=== PATIENT | male | born 1960 | race Caucasian/White ===

== ENCOUNTER 2019-05-26 06:45 | Day surgery (SDC) | payer BC ==
[~2019-05-26 06:45] MED LIST: CEFAZOLIN 1 GM/D5W RTU 1 GM/50 ML RTUPB IV PRN; DIAZEPAM 5 MG TABLET PO PRN; OXYCODONE-ACETAMINOPHEN 5-325 MG TABLET PO PRN
[2019-05-26] MEDS ORDERED: DIAZEPAM 5 MG TABLET ONE (08:00)
[2019-05-26] MEDS ORDERED: OXYCODONE-ACETAMINOPHEN 5-325 MG TABLET ONE (08:00)
[2019-05-26] MEDS ORDERED: CEFAZOLIN 1 GM/D5W RTU 1 GM/50 ML RTUPB IV ONE (08:02)
[2019-05-26] MEDS ORDERED: MIDAZOLAM 2 MG/2 ML INJ ONE (08:08)
[2019-05-26] MEDS ORDERED: LIDOCAINE 0.5% INJ-PF (5 MG/ML) 50 ML SDV ONE (08:08)
[2019-05-26] MEDS ORDERED: BACITRACIN INJ 50,000 UNIT VIAL ONE (08:09)
[2019-05-26] MEDS ORDERED: FENTANYL CITRATE INJ/PF 100 MCG/2 ML AMPUL ONE (08:09)
[2019-05-26 08:11] LABS: HEMATOCRIT 32.5 % (37.9-51.0); HEMOGLOBIN 10.6 g/dL (13.5-17.0); MEAN CORPUSCULAR HEMOGLOBIN 24.4 pg (27.0-33.4); MEAN CORPUSCULAR HGB CONC 32.7 g/dL (32.0-36.0); MEAN CORPUSCULAR VOLUME 75 fl (80-97); PLATELET COUNT 246 10^3/uL (150-450); RED BLOOD COUNT 4.35 10^6/uL (4.35-5.55); RED CELL DISTRIBUTION WIDTH 18.8 % (11.5-14.0)
[2019-05-26 08:29] LABS: ANION GAP 10 (5-19); BLOOD UREA NITROGEN 10 mg/dL (7-20); CALCIUM 9.5 mg/dL (8.4-10.2); CARBON DIOXIDE 25 mmol/L (22-30); CHLORIDE 105 mmol/L (98-107); GLUCOSE 108 mg/dL (75-110); POTASSIUM 3.7 mmol/L (3.6-5.0)
--- NOTE | 2019-05-26 09:50 | RADIOLOGY REPORT (SQ) ---
EXAM DESCRIPTION: CHEST SINGLE VIEW COMPLETED DATE/TIME: 05/26/2019 7:50 am REASON FOR STUDY: PREOP COMPARISON: None. EXAM PARAMETERS: NUMBER OF VIEWS: One view. TECHNIQUE: Single frontal radiographic view of the chest acquired. RADIATION DOSE: NA LIMITATIONS: None. FINDINGS: LUNGS AND PLEURA: Minimal scarring in the lung bases. No opacities, masses or pneumothora x. No pleural effusion. MEDIASTINUM AND HILAR STRUCTURES: No masses. Contour normal. HEART AND VASCULAR STRUCTURES: Heart normal in size. Normal vasculature. BONES: No acute findings. HARDWARE: None in the chest. OTHER: No other significant finding. IMPRESSION: NO ACUTE RADIOGRAPHIC FINDING IN THE CHEST. TECHNICAL DOCUMENTATION: JOB ID: [id number] [employer]- All Rights Reserved Reading location - IP/workstation name: [email or web address]
--- NOTE | 2019-05-26 10:03 | Discharge Summary ---
Discharge Summary (SDC) - Discharge Final Diagnosis: Rectosigmoid cancer Date of Surgery: 05/26/19 Discharge Date: 05/26/19 Condition: Good Treatment or Instructions: Discharge home [after recovery per ASU criteria]. Diet , as tolerated, when fully awake advance as tolerated. Activities within moderation encouraged. Follow up in my office by appointment in about [1 week]. Call for appointment. Leave wounds [covered], [keep clean and dry, until office visit in 1 week]. Hold of on school/work [until evaluation in office]. Meds per med rec. May shower [in 48 hrs], [try to keep operated area as dry as possible]. Prescriptions: Oxycodone HCl/Acetaminophen [Percocet 5-325 mg Tablet] 1 tab PO ASDIR PRN #15 tab PRN Reason: Referrals: YENI BARON MD [Primary Care Provider] - Discharge Diet: As Tolerated Respiratory Treatments at Home: Deep Breathing/Coughing
[2019-05-26 11:06] VITALS: BP 134/88
--- NOTE | 2019-05-26 11:16 | RADIOLOGY REPORT (SQ) ---
EXAM DESCRIPTION: CHEST SINGLE VIEW COMPLETED DATE/TIME: 05/26/2019 11:06 am REASON FOR STUDY: POST OP PORT-A-CATH INSERTION COMPARISON: 05/26/2019. EXAM PARAMETERS: NUMBER OF VIEWS: One view. TECHNIQUE: Single frontal radiographic view of the chest acquired. RADIATION DOSE: NA LIMITATIONS: None. FINDINGS: LUNGS AND PLEURA: No opacities, masses or pneumothorax. No pleural effusion. MEDIASTINUM AND HILAR STRUCTURES: No masses. Contour normal. HEART AND VASCULAR STRUCTURES: Heart normal in size. Normal vasculature. BONES: No acute findings. HARDWARE: Vascular port on the right side. Tip of the catheter at the level of the superior vena cav a. OTHER: No other significant finding. IMPRESSION: NO PNEUMOTHORAX FOLLOWING PORT PLACEMENT. TECHNICAL DOCUMENTATION: JOB ID: [id number] [employer]- All Rights Reserved Reading location - IP/workstation name: [email or web address]
--- NOTE | 2019-05-26 11:17 | RADIOLOGY REPORT (SQ) ---
EXAM DESCRIPTION: PORTACATH INSERTION COMPLETED DATE/TIME: 05/26/2019 9:33 am REASON FOR STUDY: RECTOSIGMOID CA COMPARISON: None. FLUOROSCOPY TIME: 1.2 minutes. 34 images saved to PACS. TECHNIQUE: Intra-operative images acquired during surgical procedure to evaluate progress. NUMBER OF IMAGES: 34 images. LIMITATIONS: None. FINDINGS: Images of the chest acquired during catheter placement. IMPRESSION: IMAGE(S) OBTAINED DURING PROCEDURE. COMMENT: Quality ID [id number]: Final reports for procedures using fluoroscopy that document radiation exp osure indices, or exposure time and number of fluorographic images (if radiation exposure indices are not available) Please consult full operative report of the attending physician for description of the procedure. TECHNICAL DOCUMENTATION: JOB ID: [id number] [employer]- All Rights Reserved Reading location - IP/workstation name: [email or web address]
--- NOTE | 2019-05-26 14:35 | Operative Report ---
Operative Report DATE OF SURGERY: 05/26/19 PREOPERATIVE DIAGNOSIS: Rectosigmoid cancer POSTOPERATIVE DIAGNOSIS: Rectosigmoid cancer OPERATION: 1. Ultrasound evaluation of the right internal jugular vein. SURGEON: SOSA LAO INDUSTRIAL TWISTING MACHINE OPERATOR: None. ANESTHESIA: Moderate Sedation TISSUE REMOVED OR ALTERED: Not applicable. COMPLICATIONS: None. ESTIMATED BLOOD LOSS: 2 mL. INTRAOPERATIVE FINDINGS: Of a satisfactory right internal jugular vein estimated to be about 1.2 cm in diameter. Satisfactory and safe ultrasound-guided access. Good position of the tip of the catheter in the superior vena cava. Easy egress of blood and ingress of heparinized solution. Postprocedure chest x-ray showed hardware in good position, no untoward findings. Easy egress of blood and ingress of heparinized solution noted. PROCEDURE: After obtaining informed consent, the patient was taken to the Reimbursement Representative and positioned supine. The [right] neck and chest were prepared with chlorhexidine and draped out with sterile linen. After the " universal timeout", in which it was verified that the patient continued to receive antibiotic, the procedure commenced. A steriley sheathed ultrasound probe was used to evaluate the [right] internal jugular vein. Local anesthesia was infiltrated adjacent to the probe. Access into the [right] internal jugular vein was obtained using a micropuncture needle, followed by micropuncture wire and then a micropuncture catheter. This was followed by introduction of a 0.035 guidewire the tip of which was placed down into the inferior vena cava . The port sites was marked , locally anesthetized and incision made. Dissection now proceeded to the deep subcutaneous subcutaneous tissues so that a pocket for the port was made. Meticulous hemostasis was secured and the catheter was tunneled between the 2 incisions. Proximally, the catheter was now positioned using a peel-away sheath. Distally the catheter was tailored to an appropriate length and then mated to the port using the contained fixating device. The port was now placed in the pocket and the catheter optimally positioned. The port was accessed with a Flowers needle and an angiogram done under digital subtraction. The findings as dictated. With adequate and satisfactory positioning, the lumen of the chamber were irrigated with heparinized solution. The wounds were now closed using interrupted 3-0 PDS to the subcutaneous tissues and a continuous subcuticular suture of 4-0 Monocryl to the skin. These are reinforced with Steri-Strips over benzoin and then dressings applied. Time: 1.2 minute. Dose: 19.1 m Gy Contrast: 5 Mls. Isovue 300. Copies of the dictated operative report for Dr. Sosa Turner MD.
== END 2019-05-26 11:10 | disposition home or self-care (01) ==
LOC: CCL 06:45
PROVIDERS: ATTEND Surgery
DX: C19 Malignant neoplasm of rectosigmoid junction (principal); D50.0 Iron deficiency anemia secondary to blood loss (chronic); E55.9 Vitamin D deficiency, unspecified; Z79.899 Other long term (current) drug therapy; Z01.818 Encounter for other preprocedural examination
CPT/HCPCS: 36415; 85027; 80048; 36561; 76937; 77001; 71045; C1769; C1752; C1788; Q9967; J2250; J3490 ×2; J0690; J3010; J1644

== ENCOUNTER 2020-06-22 07:48 | Day surgery (SDC) | payer BC ==
[2020-06-17 09:58] LABS: HEMOGLOBIN 14.2 g/dL (13.5-17.0); MEAN CORPUSCULAR HEMOGLOBIN 31.2 pg (27.0-33.4); MEAN CORPUSCULAR HGB CONC 35.4 g/dL (32.0-36.0); MEAN CORPUSCULAR VOLUME 88 fl (80-97); RED BLOOD COUNT 4.54 10^6/uL (4.35-5.55); RED CELL DISTRIBUTION WIDTH 16.2 % (11.5-14.0); WHITE BLOOD COUNT 3.9 10^3/uL (4.0-10.5)
[2020-06-17 10:24] LABS: ANION GAP 7 (5-19); BLOOD UREA NITROGEN 9 mg/dL (7-20); CALCIUM 8.9 mg/dL (8.4-10.2); CARBON DIOXIDE 28 mmol/L (22-30); CHLORIDE 103 mmol/L (98-107); GLUCOSE 109 mg/dL (75-110); POTASSIUM 4.1 mmol/L (3.6-5.0)
--- NOTE | 2020-06-17 10:31 | RADIOLOGY REPORT (SQ) ---
EXAM DESCRIPTION: CHEST PA/LATERAL IMAGES COMPLETED DATE/TIME: 06/17/2020 9:50 am REASON FOR STUDY: PRE-OP COMPARISON: 05/26/2019. EXAM PARAMETERS: NUMBER OF VIEWS: two views TECHNIQUE: Digital Frontal and Lateral radiographic views of the chest acquired. RADIATION DOSE: NA LIMITATIONS: none FINDINGS: LUNGS AND PLEURA: No opacities, masses or pneumothorax. No pleural effusion. MEDIASTINUM AND HILAR STRUCTURES: No masses or contour abnormalities. HEART AND VASCULAR STRUCTURES: Heart normal size. No evidence for failure. BONES: No acute findings. Degenerative changes in the spine. HARDWARE: Vascular port. OTHER: No other significant finding. IMPRESSION: NO SIGNIFICANT RADIOGRAPHIC FINDING IN THE CHEST. TECHNICAL DOCUMENTATION: JOB ID: [id number] 2010 [employer]- All Rights Reserved Reading location - IP/workstation name: [email or web address]
[2020-06-17 10:39] LABS: PLATELET COUNT 78 10^3/uL (150-450)
--- NOTE | 2020-06-17 19:20 | EKG REPORT ---
SEVERITY:- NORMAL ECG - SINUS RHYTHM : Confirmed by: Yokasta Abarca MD 17-Jun-2020 19:19:53
[~2020-06-22 07:48] MED LIST changes: +ACETAMINOPHEN 1,000 MG/100 ML RTUPB IV PRN; -CEFAZOLIN 1 GM/D5W RTU 1 GM/50 ML RTUPB IV PRN; +CEFAZOLIN 2 GM/D5W RTU 2 GM/50 ML RTUPB IV PRN; -DIAZEPAM 5 MG TABLET PO PRN; +IBUPROFEN 800 MG in NORMAL SALINE 250 ML IV PRN; +LACTATED RINGERS 1000 ML IV PRN; -OXYCODONE-ACETAMINOPHEN 5-325 MG TABLET PO PRN; +PREGABALIN 50 MG CAPSULE PO PRN
[2020-06-22] MEDS ORDERED: CEFAZOLIN 2 GM/D5W RTU 2 GM/50 ML RTUPB IV ONE (08:19)
[2020-06-22] MEDS ORDERED: PREGABALIN 50 MG CAPSULE ONE (08:19)
[2020-06-22] MEDS ORDERED: KETOROLAC TROMETHAMINE 60 MG/2 ML SDV ONE (09:40)
[2020-06-22] MEDS ORDERED: HYDROMORPHONE HCL INJ/PF 2 MG/ML AMPULE ONE (09:41)
[2020-06-22] MEDS ORDERED: ONDANSETRON HCL INJ/PF 4 MG/2 ML SDV ONE (09:41)
[2020-06-22] MEDS ORDERED: PROPOFOL INJ 200 MG/20 ML VIAL IV ONE (09:41)
[2020-06-22] MEDS ORDERED: FENTANYL CITRATE INJ/PF 100 MCG/2 ML AMPUL ONE ×2 (09:41→11:34)
[2020-06-22] MEDS ORDERED: DEXAMETHASONE SOD PHOSPHATE INJ 4 MG/1 ML VIAL ONE (09:41)
[2020-06-22] MEDS ORDERED: MIDAZOLAM 2 MG/2 ML INJ ONE (09:41)
[2020-06-22] MEDS ORDERED: BUPIVACAINE HCL 0.25 % INJ/PF (2.5 MG/1 ML) 30 ML VIAL ONE (09:51)
[2020-06-22] MEDS ORDERED: ACETAMINOPHEN 1,000 MG/100 ML RTUPB IV ONE (09:58)
[2020-06-22] MEDS ORDERED: OXYCODONE-ACETAMINOPHEN 5-325 MG TABLET PO PRN ×2 (10:38)
[2020-06-22] MEDS ORDERED: MORPHINE SULFATE 10 MG/ML INJ IV PRN (10:38)
[2020-06-22] MEDS ORDERED: PROMETHAZINE HCL INJ 25 MG/1 ML VIAL IV PRN ×2 (10:38)
[2020-06-22] MEDS ORDERED: FENTANYL CITRATE INJ/PF 100 MCG/2 ML AMPUL IV PRN ×3 (10:38)
[2020-06-22] MEDS ORDERED: MEPERIDINE HCL/PF INJ 25 MG/1 ML DISP.SYRIN IV PRN (10:38)
[2020-06-22] MEDS ORDERED: ONDANSETRON HCL INJ/PF 4 MG/2 ML SDV IV PRN (10:38)
[2020-06-22] MEDS ORDERED: DIPHENHYDRAMINE HCL 50 MG/ML VIAL IV PRN (10:38)
[2020-06-22] MEDS ORDERED: OXYCODONE HCL IR 5 MG TABLET PO PRN (12:04)
--- NOTE | 2020-06-22 12:05 | Discharge Summary ---
Discharge Summary (SDC) - Discharge Final Diagnosis: left inguinal hernia Date of Surgery: 06/22/20 Discharge Date: 06/22/20 Condition: Stable Treatment or Instructions: Discharge home. Diet as tolerated. Activity: No lifting greater than 10 pounds x 6 weeks. Follow-up with [facility] in 7 to 10 days. Okay to shower starting on . No tub baths or swimming pools x2 weeks. Oxycodone 5 mg every 6 hours PRN for pain. Prescriptions: Oxycodone HCl [Oxy-Ir 5 mg Tablet] 5 mg PO Q6HP PRN #28 tab PRN Reason: For Pain Referrals: YENI BARON MD [Primary Care Provider] - Discharge Diet: As Tolerated Respiratory Treatments at Home: Deep Breathing/Coughing, Incentive Spirometer Discharge Activity: Balance Activity w/Rest, No Lifting Over 10 Pounds, No Lifting/Push/Pulling Home Care Assistance: None Needed Report the Following to Your Physician Immediately: Shortness of Breath, Nausea, Vomiting, Increase in Pain, Fever over 101 Degrees, Unusual Bleeding, Redness, Swelling, Warmth
--- NOTE | 2020-06-22 12:18 | Operative Report ---
Nonrecallable Operative Report DATE OF SURGERY: 06/22/20 PREOPERATIVE DIAGNOSIS: Symptomatic left inguinal hernia POSTOPERATIVE DIAGNOSIS: Same as above, indirect OPERATION: Open left inguinal hernia repair with mesh, plug and patch SURGEON: KIMANI TA 1ST COLLECTIONS SPECIALIST: YADI CARNES ANESTHESIA: GA TISSUE REMOVED OR ALTERED: Hernia sac COMPLICATIONS: None apparent ESTIMATED BLOOD LOSS: Minimal PROCEDURE: Drains/implants: Medium Marlex plug and patch. Procedure in detail: After informed consent was obtained, the patient was brought into the operating room and laid in the supine position. The area of the abdomen was prepped and draped in a normal sterile fashion. An incision was created between the pubic tubercle and the ASIS. Dissection was carried through the subcutaneous tissues using sharp dissection and electrocautery. Vj's fascia was opened, revealing the external oblique aponeurosis. The external oblique was divided in the direction of its fibers. It was opened medially to the external inguinal ring. It was opened laterally, to expose the hernia fully. Next, the hernia sac was dissected off of the pubic tubercle. The hernia sac and cord were elevated and encircled with a [place] drain. Using great care, the sac was freed from the cord structures. The hernia sac was large, and would need to be resected. After the sac was completely freed, it was ligated at its base using 2-0 Vicryl suture. The hernia sac was resected. Next, a medium Marlex plug was placed into the hernia defect. It was sutured circumferentially using 0 Prolene suture. Next, the Marlex patch was brought over the field. The patch was laid into the inguinal floor. It was sutured to the pubic tubercle x2. A running 0 Prolene suture was used circumferentially. Inferiorly, it was sewn to Poupart's ligament. Superiorly it was sewn to the internal oblique aponeurosis. The cord was brought through the keyhole. The keyhole was sutured shut, with enough room to except a pinky finger. The patch was inspected, and found to lie in good position. The external oblique aponeurosis was then closed over top of the repair using 3-0 Vicryl suture in simple running fashion. Vj's fascia was closed using 3-0 Vicryl suture in simple running fashion. The overlying skin was closed using 4-0 Vicryl Rapide suture in subcuticular fashion. A dressing was placed, and the procedure was concluded. All sponge, instrument, and needle counts were correct x2. Condition: Stable. Yadi Carnes PA-C was scrubbed and present the entirety of the procedure. She assisted with all portions of the procedure including opening of the skin, opening of the fascia, dissection of the hernia sac, placement of the mesh, closure of the fascia, and closure of the skin.
[2020-06-22] MEDS ORDERED: METOPROLOL TARTRATE PF/INJ 5 MG/5 ML SDV IV ONE (12:51)
[2020-06-22] MEDS ORDERED: OXYCODONE-ACETAMINOPHEN 5-325 MG TABLET ONE (12:59)
[2020-06-22 14:13] VITALS: BP 136/93
[2020-06-22] MEDS ORDERED: SUCCINYLCHOLINE CHLORIDE INJ 200 MG/10 ML VIAL ONE (16:40)
== END 2020-06-22 14:05 | disposition home or self-care (01) ==
LOC: OROUT 07:48
PROVIDERS: ATTEND Surgery
DX: K40.90 Unilateral inguinal hernia, without obstruction or gangrene, not specified as recurrent (principal); D50.9 Iron deficiency anemia, unspecified; E55.9 Vitamin D deficiency, unspecified; C19 Malignant neoplasm of rectosigmoid junction; K21.9 Gastro-esophageal reflux disease without esophagitis; E66.9 Obesity, unspecified; Z92.21 Personal history of antineoplastic chemotherapy; Z79.891 Long term (current) use of opiate analgesic; Z79.899 Other long term (current) drug therapy; Z95.828 Presence of other vascular implants and grafts; Z20.828 Contact with and (suspected) exposure to other viral communicable diseases
CPT/HCPCS: 93005; 36415; 85027; 80048; 71046; 93010; 49505; C1781; U0003; J2250; J1100; J1885; J3010; J3490 ×2; J1170; J0330; J2405; J7050; J2704; J0690; J0131; J1741; C9803; 830; 87635

== ENCOUNTER → 2020-07-16 | Outpatient (CLI) | payer BC ==
--- NOTE | 2020-07-16 15:38 | RADIOLOGY REPORT (SQ) ---
EXAM DESCRIPTION: SHOULDER LEFT 2 OR MORE VIEWS IMAGES COMPLETED DATE/TIME: 07/16/2020 2:30 pm REASON FOR STUDY: PAIN IN UNSPECIFIED LIMB M79.609 PAIN IN UNSPECIFIED LIMB C19 MALIGNANT NEOPLASM OF RECTOSIGMOID JUNCTION COMPARISON: None. NUMBER OF VIEWS: Three view. TECHNIQUE: Internal rotation, external rotation, and Y view images acquired of the left shoulder. LIMITATIONS: None. FINDINGS: MINERALIZATION: Normal. BONES: No acute fracture. No worrisome bone lesions. No significant osteophytes. GLENOHUMERAL JOINT: No significant findings. ACROMIOCLAVICULAR JOINT: No large osteophytes. SOFT TISSUES: No calcifications. VISUALIZED RIBS, SPINE, AND LUNG: No other significant finding. OTHER: No other significant finding. IMPRESSION: NEGATIVE STUDY OF THE LEFT SHOULDER. NO EXPLANATION FOR PAIN. TECHNICAL DOCUMENTATION: JOB ID: [id number] 2010 [employer],- All Rights Reserved Reading location - IP/workstation name: [email or web address]
== END ==
LOC: OD 14:14
PROVIDERS: ATTEND Internal Medicine Hematology & Oncology
DX: C19 Malignant neoplasm of rectosigmoid junction (principal); M79.609 Pain in unspecified limb

== ENCOUNTER → 2020-08-27 | Outpatient (CLI) | payer BC ==
[2020-08-27 09:46] VITALS: BP 163/89
--- NOTE | 2020-08-27 09:46 | ER RDC ASSESSMENT REPORT ---
Intake - In the Last 14 days Have you traveled outside [place]?: No Have you been in close contact with someone CONFIRMED: No Worked in Healthcare?: No - Symptoms Subjective Fever([place] feverish): No Chills: No Muscule Aches: No Runny Nose: No Sore Throat: No Cough (New or worsening chronic cough): Yes Shortness of breath: Yes Nausea or Vomiting: No Headache: No Abdominal Pain: No Diarrhea(3 or more loose stools in last 24 hours): No - Do you have any of the following Chronic lung disease: Asthma or emphysema or COPD: No Cystic Fibrosis: No Diabetes: No High Blood Pressure: No Cardiovascular Disease: No Chronic Kidney Disease: No Chronic Liver Disease: No Chronic blood disorder like Sickle Cell Disease: No Weak immune system due to disease or medication: Yes Immune System Comment: cancer Neurologic condition that limits movement: No Developmental delay - Moderate to Severe: No Recent (within past 2 weeks) or current : No Morbid Obesity (>100 pounds over ideal weight): No - Objective Temperature: 97.9 F Pulse Rate: 86 Respiratory Rate: 16 Blood Pressure: 163/89 O2 Sat by Pulse Oximetry: 93 Objective: Given above, testing performed: If Testing Performed: Test Specimen Type Sent to General - General Information source: Patient Notes: Patient presents RDC for screening for coronavirus. Patient had cough and shortness of breath for the past 2 weeks. - Related Data Allergies/Adverse Reactions: No Known Allergies Allergy (Verified 05/26/19 09:09) Past Medical History - General Information source: Patient - Social History Smoking Status: Never Smoker - Past Medical History Cardiac Medical History: Denies: Hx Coronary Artery Disease, Hx Heart Attack, Hx Hypertension Pulmonary Medical History: Denies: Hx Asthma, Hx Bronchitis, Hx COPD, Hx Pneumonia Neurological Medical History: Denies: Hx Cerebrovascular Accident, Hx Seizures Malignancy Medical History: Reports Other - Unspecified cancer Musculoskeletal Medical History: Denies Hx Arthritis Past Surgical History: Reports: Hx Herniorrhaphy Physical Exam - Notes Notes: The patient was evaluated during the global Covid 19 pandemic, and that diagnosis was suspected/considered upon their initial presentation. Their evaluationand testing was consistent with current guidelines for patients who present with complaints or symptoms that may be related to Covid 19. Full physical exam could not be performed due to covid 19 isolation protocols. Constitutional: Nontoxic appearance, no acute distress Eyes: Nonicteric, extraocular movements intact, sclera clear Cardiovascular: Heart rate and rhythm regular, no JVD Respiratory: Breath sounds clear bilaterally, nonlabored breathing, no use of accessory muscles, no tachypnea Gastrointestinal: Abdomen not distended Muculoskeletal: Moves all extremities well Skin: Normal color Neuro: Awake alert oriented, normal speech Psych: Normal mood and affect Diagnostic Results Laboratory Results: Patient presents with upper respiratory symptoms worrisome for possible Covid 19. Patient does not have emergency worrying symptoms such as difficulty breathing, chest pain, pressure, confusion or cyanosis. Patient appears suitable for discharge as vital signs are stable and patient is nontoxic in appearance. Good return precautions have been discussed with patient, patient verbalized understanding and is agreeable with discharge plan of care at this time. Patient Education/Counseling Counseling/Education: Patient was provided with discharge information including: As a person under investigation for Covid 19, the [facility] of Health and Human Services, division of public health advises you to adhere to the following guidance until your test results are reported to you. If your test result is positive, you will receive additional information from your provider and your local health department at that time. Remain at home until you are cleared by the health provider or public health authorities. Keep a log of visitors to your home, notify any visitors to your home of your isolation status. If you plan to move to a new address or leave the county, notify the local health department in your County. Call your doctor or seek care if you have an urgent medical need. Before seeking medical care, call ahead to get instructions from the provider before arriving at the medical office clinic or hospital. Notify them that you are being tested for the virus that causes Covid 19 so that arrangements can be made, as necessary, to prevent transmission to others in the healthcare setting. Next, notify the local health department in your county. If a medical emergency arises and you need to call 911, inform the first responders that you are being tested for the virus that causes Covid 19. Next, notify the local health department in your county. RDC Discharge - Discharge Clinical Impression: Encounter for screening laboratory testing for COVID-19 virus Condition: Stable Disposition: Home; Selfcare
== END ==
LOC: RDC 09:16
PROVIDERS: ATTEND Nurse Practitioner Family
DX: Z20.828 Contact with and (suspected) exposure to other viral communicable diseases (principal); R05 Cough; R06.02 Shortness of breath; C80.1 Malignant (primary) neoplasm, unspecified
CPT/HCPCS: U0003; C9803; 87635; 99201; 99211

== ENCOUNTER → 2020-09-06 | Outpatient (CLI) | payer BC ==
[2020-09-06 14:07] VITALS: BP 134/78
--- NOTE | 2020-09-06 14:07 | ER RDC ASSESSMENT REPORT ---
Intake - In the Last 14 days Have you traveled outside [place]?: No Have you been in close contact with someone CONFIRMED: Yes Worked in Healthcare?: No - Symptoms Subjective Fever([place] feverish): No Chills: No Muscule Aches: No Runny Nose: No Sore Throat: No Cough (New or worsening chronic cough): Yes Shortness of breath: No Nausea or Vomiting: No Headache: No Abdominal Pain: No Diarrhea(3 or more loose stools in last 24 hours): No - Do you have any of the following Chronic lung disease: Asthma or emphysema or COPD: No Cystic Fibrosis: No Diabetes: No High Blood Pressure: No Cardiovascular Disease: No Chronic Kidney Disease: No Chronic Liver Disease: No Chronic blood disorder like Sickle Cell Disease: No Weak immune system due to disease or medication: Yes Immune System Comment: Patient has active colon cancer and being treated for it. Neurologic condition that limits movement: No Developmental delay - Moderate to Severe: No Recent (within past 2 weeks) or current : No Morbid Obesity (>100 pounds over ideal weight): No Obesity Comment: Height 6 feet 2 inches weight 300 pounds - Objective Temperature: 97.8 F Pulse Rate: 84 Respiratory Rate: 16 Blood Pressure: 134/78 O2 Sat by Pulse Oximetry: 93 Objective: Given above, testing performed: If Testing Performed: Test Specimen Type Sent to General - General Information source: Patient Notes: Patient here at [facility] for Covid testing patient reports son has recently tested positive for Covid patient has been exposed to son patient has an ongoing cough and has been treated with Z-Yeison. Patient reports he is seeing Dr. Eckert for treatment of colon cancer and treat. Patient's cough. Patient will be following up with Dr. Perkins regarding positive exposure. - Related Data Allergies/Adverse Reactions: No Known Allergies Allergy (Verified 05/26/19 09:09) Past Medical History - General Information source: Patient - Social History Smoking Status: Never Smoker - Past Medical History Cardiac Medical History: Denies: Hx Coronary Artery Disease, Hx Heart Attack, Hx Hypertension Pulmonary Medical History: Denies: Hx Asthma, Hx Bronchitis, Hx COPD, Hx Pneumonia Neurological Medical History: Denies: Hx Cerebrovascular Accident, Hx Seizures Musculoskeletal Medical History: Denies Hx Arthritis Past Surgical History: Reports: Hx Herniorrhaphy Physical Exam - General General appearance: Appears well, Alert In distress: None Notes: PHYSICAL EXAMINATION: GENERAL: Well-appearing and in no acute distress. HEAD: Atraumatic, normocephalic. EYES: sclera anicteric, conjunctiva are normal. ENT: nares patent. Moist mucous membranes. NECK: Normal range of motion, supple without lymphadenopathy LUNGS: CTAB and equal. No wheezes rales or rhonchi. Respirations even and unlabored lung sounds clear. HEART: Regular rate and rhythm without murmurs ABDOMEN: Soft, nontender, normal bowel sounds, no guarding. EXTREMITIES: Normal range of motion, no pitting edema. No cyanosis. NEUROLOGICAL: Cranial nerves grossly intact. Normal speech. Normal gait. PSYCH: Normal mood, normal affect. SKIN: Warm, Dry, normal turgor, no rashes or lesions noted Diagnostic Results Laboratory Results: Pending Covid testing results. Patient provided instructions regarding Covid to include: As a person under investigation for Covid 19, the [facility] of Health and Human Services, division of public health advises you to adhere to the following guidance until your test results are reported to you. If your test result is positive, you will receive additional information from your provider and your local health department at that time. Remain at home until you are cleared by the health provider or public health authorities. Keep a log of visitors to your home, notify any visitors to your home of your isolation status. If you plan to move to a new address or leave the [facility], notify the local health department in your County. Call your doctor or seek care if you have an urgent medical need. Before seeking medical care, call ahead to get instructions from the provider before arriving at the medical office clinic or hospital. Notify them that you are being tested for the virus that causes Covid 19 so that arrangements can be made, as necessary, to prevent transmission to others in the healthcare setting. Next, notify the local health department in your county. If a medical emergency arises and you need to call 911, inform the first responders that you are being tested for the virus that causes Covid 19. Next, notify the local health department in your county. Patient Education/Counseling Counseling/Education: Patient presents with upper respiratory symptoms worrisome for possible Covid 19. Patient does not have emergency worring symptoms such as difficulty breathing, shortness of breath, chest pain, pressure, confusion or cyanosis. Patient appears suitable for discharge. Patient instructed to follow-up with his PCP Dr. Eckert. To ED for persistent or worsening symptoms. Patient's vital signs are stable and patient is nontoxic in appearance. Good return precautions have been discussed with patient, patient verbalized understanding and is agreeable with discharge plan of care at this time. RDC Discharge - Discharge Clinical Impression: Encounter for screening laboratory testing for COVID-19 virus Condition: Stable Disposition: Home; Selfcare
== END ==
LOC: RDC 12:28
PROVIDERS: ATTEND Nurse Practitioner Family
DX: Z20.828 Contact with and (suspected) exposure to other viral communicable diseases (principal); R05 Cough; C18.9 Malignant neoplasm of colon, unspecified
CPT/HCPCS: 99211 ×2; U0003; C9803; 87635

== ENCOUNTER 2020-09-09 17:04 | Observation (INO) | payer BC ==
--- NOTE | 2020-09-09 18:19 | ER Document Report ---
ED Medical Screen (RME) - General Chief Complaint: Other Stated Complaint: FLUID ON LUNGS Time Seen by Provider: 09/09/20 17:54 Primary Care Provider: JAYASHREE BAKER MD [Primary Care Provider] - Follow up as needed Mode of Arrival: Wheelchair Information source: Patient, Relative Notes: Patient is a 60-year-old male who was sent to the emergency room by Dr. Baker f rom oncology secondary to having pleural effusions on the lungs. Patient has a history of colon and liver cancer he went there today for his chemotherapy and was listened to by Dr. Baker and she felt that he sounded like he had fluid on the lungs so my understanding is she contacted radiology and was sent over here and had a CT of the chest and abdomen and pelvis with contrast and patient was told to stay here in the emergency room for admission. The CT report read bilateral pleural effusions, left greater than right with the volume on the left estimated at 1.5 L 30 2H use. There is associated dependent airspace disease. Hilar and mediastinal structures no identified masses or abnormal nodes heart and vascular structures no aneurysm or dissection no central pulmonary embolism no pericardial effusion impression was moderate left and slightly smaller right pleural effusion patient also states that he had labs done but not at our facility and he is waiting for admission. Physical examination shows him to be a well-nourished well-developed 60-year-old male no apparent distress on examination today. Lungs: Bilateral breath sounds with breath sounds decreased there is noticeable Rales scattered throughout bilateral lungs. No rhonchi or wheezing heard at this time. Cardiac: Patient displays a heart rate of 86 bpm on monitor there is no auscultated murmur. Respiratory rate is 20 blood pressure is 137/84. Pulse ox shows 94% on room air. Lower extremities: Patient is wearing shorts so easy to see that he has 2+ pitting edema bilateral lower extremities. I have ordered some basic labs as we do not have any here the has a copy of the labs that were done today but given that we do not have them in the computer I felt that repeating was essential. I was also unable to raise the CT reports in our system currently so I placed a hard copy of the CT chest in the chart. I have greeted and performed a rapid initial assessment of this patient. A comprehensive ED assessment and evaluation of the patient, analysis of test results and completion of the medical decision making process will be conducted by additional ED providers. Dictation of this chart was performed using voice recognition software; therefore, there may be some unintended grammatical errors. TRAVEL OUTSIDE OF THE [place] IN LAST 30 DAYS: No - Related Data Allergies/Adverse Reactions: No Known Allergies Allergy (Verified 05/26/19 09:09) Past Medical History - Past Medical History Cardiac Medical History: Denies: Hx Coronary Artery Disease, Hx Heart Attack, Hx Hypertension Pulmonary Medical History: Denies: Hx Asthma, Hx Bronchitis, Hx COPD, Hx Pneumonia Neurological Medical History: Denies: Hx Cerebrovascular Accident, Hx Seizures Musculoskeltal Medical History: Denies Hx Arthritis Past Surgical History: Reports: Hx Herniorrhaphy - Immunizations Hx Diphtheria, Pertussis, Tetanus Vaccination: Yes Physical Exam - Vital signs Vitals: Temp Pulse Resp BP Pulse Ox 97.5 F 86 20 137/84 H 94 09/09/20 17:35 09/09/20 17:35 09/09/20 17:35 09/09/20 17:35 09/09/20 17:35 Course - Vital Signs Vital signs: Temp Pulse Resp BP Pulse Ox 97.5 F 86 20 137/84 H 94 09/09/20 17:35 09/09/20 17:35 09/09/20 17:35 09/09/20 17:35 09/09/20 17:35 Doctor's Discharge - Discharge Referrals: JAYASHREE BAKER MD [Primary Care Provider] - Follow up as needed
--- NOTE | 2020-09-09 22:24 | ER Document Report ---
ED General - General Chief Complaint: Other Stated Complaint: FLUID ON LUNGS Time Seen by Provider: 09/09/20 17:54 Mode of Arrival: Wheelchair TRAVEL OUTSIDE OF THE [place] IN LAST 30 DAYS: No - HPI Notes: Patient is a 60-year-old male with a past medical history of colon cancer who presents with shortness of breath. Patient states that for the past week he has been increasingly short of breath with exertion. He is unable to lay flat due to orthopnea. Patient mentions that his stomach has felt swollen and his legs are also swollen. He went to see Dr. Baker his oncologist today. She ordered an outpatient CT scan of his chest. When patient had the CT scan done, the radiologist told him to go to the ER because he had fluid on his lungs. Patient denies any fevers or chills. No cough. He was Covid tested several days ago and it was negative. - Related Data Allergies/Adverse Reactions: No Known Allergies Allergy (Verified 05/26/19 09:09) Past Medical History - General Information source: Patient, Relative - Social History Smoking Status: Never Smoker Family History: Reviewed & Not Pertinent - Past Medical History Cardiac Medical History: Denies: Hx Coronary Artery Disease, Hx Heart Attack, Hx Hypertension Pulmonary Medical History: Denies: Hx Asthma, Hx Bronchitis, Hx COPD, Hx Pneumonia Neurological Medical History: Denies: Hx Cerebrovascular Accident, Hx Seizures Musculoskeletal Medical History: Denies Hx Arthritis Past Surgical History: Reports: Hx Herniorrhaphy - Immunizations Hx Diphtheria, Pertussis, Tetanus Vaccination: Yes Review of Systems - Review of Systems Notes: CONSTITUTIONAL: No fever, fatigue or weight loss. Positive for weight gain. SKIN: No rash. CARDIOVASCULAR: No chest pain or edema. RESPIRATORY: No cough. Positive for shortness of breath. GASTROINTESTINAL: No abdominal pain, nausea, vomiting, bloody stools or diarrhea. MUSCULOSKELETAL: No joint pain or swelling. Positive for leg swelling. NEUROLOGIC: No seizures. No headache, focal weakness or sensory changes. HEMATOLOGIC: No unusual bruising or bleeding. PSYCHIATRIC: No depression or anxiety. Physical Exam - Vital signs Vitals: Temp Pulse Resp BP Pulse Ox 97.5 F 86 20 137/84 H 94 09/09/20 17:35 09/09/20 17:35 09/09/20 17:35 09/09/20 17:35 09/09/20 17:35 - General General appearance: Appears well In distress: Mild Notes: VITAL SIGNS: Within normal limits. GENERAL: No acute distress, non-toxic appearance. HEAD: Normal with no signs of head trauma. EYES: Conjunctiva normal, no discharge. EARS: Hearing grossly intact. NECK: Normal range of motion, no tenderness, supple, no lymphadenopathy, No adenopathy, no JVD. CHEST: Crackles in bilateral lower lobes. CARDIAC: Regular rate and rhythm. S1 and S2, without murmurs, gallops, or rubs. VASCULAR: +1 pitting edema in lower extremities. ABDOMEN: Normal and soft with no tenderness. MUSCULOSKELETAL: Good range of motion of all major joints. Extremities without clubbing, cyanosis. NEUROLOGICAL: Alert and oriented x 3. No focal sensory or strength deficits. Speech normal. Follows commands appropriately. PSYCHIATRIC: Normal Affect, judgement and mood. SKIN: Normal appearance with no rashes or lesions. Course - Re-evaluation Re-evalutation: 09/10/20 00:39 Patient's pulse ox dropped to 91%. He was placed on 2 L nasal cannula. He also appears dyspneic with exertion. Patient has significant fluid on his lungs on the CT scan obtained today outpatient. He also has bilateral lower extremity e rj. He is not currently on any Lasix. He states he was on a water pill for about 1 week last year after he had his liver surgery. I discussed with Dr. Perkins who stated that the radiologist had sent him to the ER. She is unsure why he has fluid in the lungs. I also discussed with the hospitalist, I do believe he requires admission for work-up of etiology of the fluid overload. Patient was given Lasix. - Vital Signs Vital signs: Temp Pulse Resp BP Pulse Ox 98.0 F 94 18 126/76 H 96 09/10/20 02:32 09/10/20 02:32 09/10/20 02:32 09/10/20 02:32 09/10/20 02:32 - Laboratory Results Result Diagrams: 09/09/20 22:50 09/09/20 22:50 Laboratory Results Interpreted: 09/09/20 09/09/20 09/10/20 22:50 22:50 00:33 RDW 16.2 H Plt Count 108 L Sodium 132.3 L Anion Gap 4 L BUN 6 L Creatinine 0.49 L Total Bilirubin 2.0 H AST 72 H Alkaline Phosphatase 153 H Albumin 3.2 L Urine Ketones TRACE H Urine Urobilinogen 2.0 H Critical Laboratory Results Reviewed: No Critical Results - Radiology Results Critical Radiology Results Reviewed: No Critical Results - EKG Interpretation by Me EKG shows normal: Sinus rhythm Rate: Normal Rhythm: NSR When compared to previous EKG there are: Previous EKG unavailable Additional EKG results interpreted by ny: 09/10/20 00:38 Sinus rhythm at a rate of 88. QTc 446. No acute ST changes. No previous EKG available for comparison. Discharge - Discharge Clinical Impression: Pleural effusion, Exertional dyspnea Condition: Stable Disposition: ADMITTED INPATIENT Admitting Provider: [facility] Admitted: Telemetry
[2020-09-09 23:07] LABS: ABSOLUTE EOSINOPHILS # (AUTO) 0.3 10^3/uL (0.0-0.6); ABSOLUTE LYMPHOCYTES (AUTO) 0.9 10^3/uL (0.5-4.7); ABSOLUTE MONOCYTES (AUTO) 0.7 10^3/uL (0.1-1.4); ABSOLUTE NEUT (AUTO) 3.5 10^3/uL (1.7-8.2); BASOPHILS % (AUTO) 0.8 % (0-2); EOSINOPHILS % (AUTO) 5.5 % (0-6); HEMATOCRIT 42.3 % (37.9-51.0); LYMPHOCYTES % (AUTO) 17.1 % (13-45); MEAN CORPUSCULAR HEMOGLOBIN 30.6 pg (27.0-33.4); MEAN CORPUSCULAR HGB CONC 35.3 g/dL (32.0-36.0); MEAN CORPUSCULAR VOLUME 87 fl (80-97); MONOCYTES % (AUTO) 12.4 % (3-13); PLATELET COUNT 108 10^3/uL (150-450); RED BLOOD COUNT 4.89 10^6/uL (4.35-5.55); RED CELL DISTRIBUTION WIDTH 16.2 % (11.5-14.0); SEGMENTED NEUTROPHILS % (AUTO) 64.2 % (42-78); TOTAL CELLS COUNTED % (AUTO) 100 %; WHITE BLOOD COUNT 5.5 10^3/uL (4.0-10.5)
[2020-09-09 23:25] LABS: ALBUMIN 3.2 g/dL (3.5-5.0); ALKALINE PHOSPHATASE 153 U/L (38-126); ASPARTATE AMINO TRANSFERASE 72 U/L (17-59); BILIRUBIN,DIRECT 0.3 mg/dL (0.0-0.4); BLOOD UREA NITROGEN 6 mg/dL (7-20); CALCIUM 8.7 mg/dL (8.4-10.2); CARBON DIOXIDE 28 mmol/L (22-30); CHLORIDE 100 mmol/L (98-107); GLUCOSE 91 mg/dL (75-110); POTASSIUM 3.9 mmol/L (3.6-5.0); TOTAL PROTEIN 6.8 g/dL (6.3-8.2)
[2020-09-09 23:41] LABS: ANION GAP 4 (5-19)
[2020-09-09] MEDS ORDERED: FUROSEMIDE INJ/PF 20 MG/2 ML SDV IV ONE (23:50)
[2020-09-09] MEDS ORDERED: FUROSEMIDE INJ/PF 40 MG/4 ML SDV IV ONE (23:58)
[2020-09-10 01:12] LABS: APPEARANCE,URINE CLEAR; BILIRUBIN,URINE NEGATIVE (NEGATIVE); COLOR,URINE YELLOW; GLUCOSE, URINE NEGATIVE (NEGATIVE); KETONES,URINE TRACE mg/dL (NEGATIVE); LEUKOCYTE ESTERASE,URINE NEGATIVE (NEGATIVE); NITRITE,URINE NEGATIVE (NEGATIVE); PROTEIN,URINE NEGATIVE (NEGATIVE); URINE SPECIFIC GRAVITY 1.024
[2020-09-10] MEDS ORDERED: ONDANSETRON HCL INJ/PF 4 MG/2 ML SDV IV PRN (01:38)
[2020-09-10] MEDS ORDERED: ACETAMINOPHEN 325 MG TABLET PO PRN (01:38)
--- NOTE | 2020-09-10 01:58 | PDOC H&P ---
History of Present Illness Admission Date/PCP: JAYASHREE SHANNON MD Patient complains of: Shortness of breath, generalized body swelling History of Present Illness: JOEY PATEL is a 60 year old male with a history of colonic cancer status post colectomy in 2016 and subsequent metastasis to liver status post partial hepatectomy currently undergoing chemotherapy every 3 weeks now presents with a week and half duration of progressively worsening shortness of breath. The shortness of breath was initially with exertion but recently he feels short of breath at rest and he also has orthopnea. Patient also reports that he has bilateral leg swelling and feels heaviness on his abdomen. He denies any chest pain, palpitation, dizziness, vomiting, abdominal pain, diarrhea, dysuria, frequency or urgency of urination. He denies any recent sick contact history. Past Medical History Cardiac Medical History: Denies: Coronary Artery Disease, Myocardial Infarction, Hypertension Pulmonary Medical History: Denies: Asthma, Bronchitis, Chronic Obstructive Pulmonary Disease (COPD), Pneumonia Neurological Medical History: Denies: Seizures Musculoskeltal Medical History: Denies: Arthritis Hematology: Reports: Anemia Past Surgical History Past Surgical History: Reports: Herniorrhaphy Social History Information Source: Patient Lives with: Family Smoking Status: Never Smoker Electronic Cigarette use?: No Frequency of Alcohol Use: Rare Hx Recreational Drug Use: No Drugs: None - Advance Directive Resuscitation Status: Full Code Family History Parental Family History Reviewed: Yes Children Family History Reviewed: Yes Sibling(s) Family History Reviewed.: Yes Medication/Allergy Home Medications: Ascorbic Acid [Vitamin C 500 mg Tablet] 500 mg PO DAILY 06/22/20 Famotidine [Pepcid 20 mg Tablet] 20 mg PO DAILY 06/22/20 Milk Thistle 500 mg PO DAILY 06/22/20 Multivit with Minerals/Lutein [Vitrum Senior Tablet] 1 each PO DAILY 06/22/20 [place]-3/Dha/Epa/Fish Oil [Fish Oil 1,000 mg Softgel] 1 each PO DAILY 06/22/20 Oxycodone HCl [Oxy-Ir 5 mg Tablet] 5 mg PO Q6HP PRN #28 tab 06/22/20 Oxycodone HCl [Oxycontin Sr 10 mg Tablet] 10 mg PO PRN PRN 06/22/20 Vit B Complex 100 Combo No.2 [Balanced B-100] 100 mg PO DAILY 06/22/20 Allergies/Adverse Reactions: No Known Allergies Allergy (Verified 05/26/19 09:09) Review of Systems Constitutional: PRESENT: weight gain. ABSENT: chills, fever(s), headache(s), weight loss Eyes: ABSENT: visual disturbances Ears: ABSENT: hearing changes Cardiovascular: PRESENT: as per HPI Respiratory: PRESENT: as per HPI Gastrointestinal: ABSENT: abdominal pain, constipation, diarrhea, hematemesis, hematochezia, nausea, vomiting Genitourinary: ABSENT: dysuria, hematuria Musculoskeletal: ABSENT: joint swelling Integumentary: ABSENT: rash, wounds Neurological: ABSENT: abnormal gait, abnormal speech, confusion, dizziness, focal weakness, syncope Psychiatric: ABSENT: anxiety, depression, homidical ideation, suicidal ideation Endocrine: ABSENT: cold intolerance, heat intolerance, polydipsia, polyuria Hematologic/Lymphatic: ABSENT: easy bleeding, easy bruising Physical Exam Vital Signs: Temp Pulse Resp BP Pulse Ox 97.5 F 86 24 H 136/76 H 94 09/09/20 17:35 09/09/20 17:35 09/10/20 00:01 09/10/20 00:01 09/10/20 00:01 Intake & Output 09/08/20 09/09/20 09/10/20 06:59 06:59 06:59 Weight 142.882 kg Additional comments: GENERAL APPEARANCE: Alert and oriented x3, in no acute distress HEENT: Normocephalic and atraumatic. No scleral icterus. Moist oral mucosa NECK: Supple. No lymphadenopathy or tenderness. No carotid bruit. Has elevated JVD CHEST: Symmetric. Nontender to palpation. LUNGS: Has dullness to percussion and decreased air entry on the left, crackles heard on the right lower lung field with decreased air entry HEART: Regular rate and rhythm with normal S1 and S2. No murmurs, gallops, or rubs. ABDOMEN: soft, active bowel sounds, no direct or rebound tenderness. No organomegaly detected. No CVA tenderness EXTREMITIES: No cyanosis, clubbing. Has +1 pitting edema bilaterally on his lower extremities up to mid holman. MUSCULOSKELETAL: No deformity, atrophy or swelling noted PSYCHIATRIC: Recent and remote memory is intact. Appropriate mood and affect. SKIN: Warm, dry, and well perfused. No lesions or rashes are noted. NEUROLOGIC: No focal sensory or motor deficits are noted. Results Laboratory Results: 09/09/20 22:50 09/09/20 22:50 09/09/20 09/09/20 09/10/20 22:50 22:50 00:33 WBC 5.5 RBC 4.89 Hgb 15.0 Hct 42.3 MCV 87 MCH 30.6 MCHC 35.3 RDW 16.2 H Plt Count 108 L Seg Neutrophils % 64.2 Sodium 132.3 L Potassium 3.9 Chloride 100 Carbon Dioxide 28 Anion Gap 4 L BUN 6 L Creatinine 0.49 L Est GFR ( Amer) > 60 Glucose 91 Calcium 8.7 Total Bilirubin 2.0 H AST 72 H Alkaline Phosphatase 153 H Total Protein 6.8 Albumin 3.2 L Urine Color YELLOW Urine Appearance CLEAR Urine pH 6.0 Ur Specific [place] 1.024 Urine Protein NEGATIVE Urine Glucose (UA) NEGATIVE Urine Ketones TRACE H Urine Blood NEGATIVE Urine Nitrite NEGATIVE Ur Leukocyte Esterase NEGATIVE Urine WBC (Auto) 1 Urine RBC (Auto) 0 09/09/20 09/09/20 22:50 22:50 Troponin I < 0.012 NT-Pro-B Natriuret Pep 47 Assessment and Plan - Diagnosis (1) Dyspnea Is this a current diagnosis for this admission?: Yes Plan: Patient presents with a 1 week duration of progressively worsening shortness of breath with associated orthopnea, and bilateral leg swelling Physical examination significant for elevated JVD, bilateral +[address] chest and abdomen showed bilateral pleural effusion with the left greater than right, moderate ascites and abdominal wall edema BNP was within the normal limits, albumin level was 3.2, kidney function within the normal limits and UA showed no proteinuria Possibly new onset heart failure Placed him on strict I&O's, daily weight, fluid restriction, Lasix 40 mg IV 3 times daily Echocardiogram in the morning (2) Swelling of both lower extremities Is this a current diagnosis for this admission?: Yes Plan: Likely due to new onset heart failure Continue treatment as stated above (3) Pleural effusion Is this a current diagnosis for this admission?: Yes Plan: Patient has dullness to percussion and decreased air entry bilaterally left greater than right side Chest showed bilateral pleural effusion Likely due to heart failure Continue management as stated above (4) History of colon cancer Is this a current diagnosis for this admission?: Yes Plan: Status post hemicolectomy in 2016 Currently following up with heme-onc and on chemotherapy (5) 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 Is this a current diagnosis for this admission?: Yes Plan: Metastatic lesion was detected on fever about a year and half ago, status post resection of metastatic lesion Continue follow-up with heme-onc as outpatient - Time Time Spent with patient: 35 or more minutes Total Critical Time (Minutes): 45 Medications reviewed and adjusted accordingly: Yes Anticipated Discharge Disposition: Home, Self Care Anticipated Discharge Timeframe: within 72 hours - Inpatient Certification Based on my medical assessment, after consideration of the patient's comorbidi ties, presenting symptoms, or acuity I expect that the services needed warrant INPATIENT care.: Yes I certify that my determination is in accordance with my understanding of Breanna brandt's requirements for reasonable and necessary INPATIENT services [42 CFR 412.3e].: Yes Medical Necessity: Significant Comorbidiites Make Outpatient Treatment Too Risky, Need Close Monitoring Due to Risk of Patient Decompensation, Need For Continuous Telemetry Monitoring, Risk of Complication if Not Cared For in Hospital Post Hospital Care: D/C or Transfer Summary
[2020-09-10 05:58] LABS: ANION GAP 6 (5-19); BLOOD UREA NITROGEN 6 mg/dL (7-20); CALCIUM 8.7 mg/dL (8.4-10.2); CARBON DIOXIDE 29 mmol/L (22-30); CHLORIDE 98 mmol/L (98-107); CHOLESTEROL 122.58 mg/dL (0-200); GLUCOSE 85 mg/dL (75-110); POTASSIUM 3.7 mmol/L (3.6-5.0); TRIGLYCERIDES 70 mg/dL (<150)
[2020-09-10 06:08] LABS: DIRECT LDL 73 mg/dL (<100)
--- NOTE | 2020-09-10 08:48 | EKG REPORT ---
SEVERITY:- NORMAL ECG - SINUS RHYTHM : Confirmed by: Fidel Mckeon MD 10-Sep-2020 08:47:34
[2020-09-10] MEDS: FAMOTIDINE 20 MG TABLET PO SCH ×2 (09:54→21:11)
[2020-09-10] MEDS: ENOXAPARIN SODIUM INJ 40 MG/0.4 ML DISP.SYRIN SUBCUT SCH (09:54)
[2020-09-10] MEDS: FUROSEMIDE INJ/PF 40 MG/4 ML SDV IV SCH ×2 (09:54→21:11)
--- NOTE | 2020-09-10 18:54 | Progress Note ---
Provider Note Provider Note: Patient seen and examined by me today. Please see H&P from overnight physician for full details of admission. Briefly, patient went for likely new onset CHF possibly due to chemotherapy for colon cancer. We will consult Dr. Perkins who actually sent patient to ED for admission. Patient breathing much better today after being diuresed and may not need thoracentesis after all. Echocardiogram to be done and read by finger cobbler either today or tomorrow.
--- NOTE | 2020-09-10 19:50 | XCELERA REPORT ---
[address] [address] Transthoracic Echocardiogram Report Name: JOEY PATEL Age: 60 yrs Gender: Male : 1960 Patient Status: Inpatient Patient Location: [address] [place] [address] Study Date: 09/10/2020 02:50 PM History: Dyspnea CHF Height: 74 in Weight: 315 lb BSA: 2.6 m2 Procedure: A complete two-dimensional transthoracic echocardiogram was performed (2D, M-mode, spectral and color flow Doppler). The study was technically limited with all images being suboptimal in quality. The study was technically difficult with many images being suboptimal in quality. Reason For Study: Dyspnea, new onset heart failure Previous Evaluation: No previous studies were available. History: CHF. Shortness of breath. Ordering Physician: CATALINO MAYER Performed By: Kay Lazaro Interpretation Summary Extremely poor quality study for valves and wall motion. Unable to comment on valve anatomy or physiology. Left ventricular systolic function is normal. The Ejection Fraction estimate is 55-60% The right ventricular systolic function is normal. There is no aortic valve stenosis There is a trace or physiologic amount of tricuspid regurgitation There is no pericardial effusion. MMode/2D Measurements & Calculations RVDd: 3.4 cm LVIDd: 4.1 cm FS: 38.9 % Ao root diam: 3.4 cm IVSd: 1.2 cm LVIDs: 2.5 cm EDV(Teich): 73.9 ml Ao root area: 9.1 cm2 LVPWd: 1.1 cm ESV(Teich): 22.3 ml LA dimension: 3.6 cm EF(Teich): 69.8 % Doppler Measurements & Calculations MV E max trudy: MV P1/2t max trudy: Ao V2 max: LV V1 max P.6 cm/sec 72.1 cm/sec 95.7 cm/sec 3.0 mmHg MV A max trudy: MV P1/2t: 55.4 msec Ao max PG: LV V1 max: 87.9 cm/sec MVA(P1/2t): 4.0 cm2 3.7 mmHg 86.4 cm/sec MV E/A: 0.81 MV dec slope: 380.9 cm/sec2 MV dec time: 0.18 sec PA V2 max: MV P1/2t-pr_phl: 78.5 cm/sec 55.4 msec PA max P.5 mmHg Left Ventricle The left ventricle is normal in size. There is moderate concentric left ventricular hypertrophy. Left ventricular systolic function is normal. The Ejection Fraction estimate is 55-60%. Doppler measurements suggest impaired left ventricular relaxation, which is associated with grade I/IV or mild diastolic dysfunction. Wall motion cannot be accurately commented on, but no definite regional wall motion abnormalities noted. Right Ventricle The right ventricle is not well visualized secondary to technical limitations. The right ventricular systolic function is normal. Atria The right atrium is normal. The left atrial size is normal. Mitral Valve The mitral valve is grossly normal. There is no mitral valve stenosis. Aortic Valve The aortic valve is not well visualized secondary to technical limitations. There is no aortic valve stenosis. Tricuspid Valve The tricuspid valve is not well visualized secondary to technical limitations. There is a trace or physiologic amount of tricuspid regurgitation. Tricuspid regurgitation jet envelope not well defined to measure RV systolic pressure accurately. Pulmonic Valve The pulmonic valve is not well visualized. There is no pulmonic valvular stenosis. Great Vessels The aortic root is not well visualized. The inferior vena cava was not well visualized. Effusions There is no pericardial effusion. : CATALINO MAYER Anil
[2020-09-11 09:32] LABS: ANION GAP 7 (5-19); BLOOD UREA NITROGEN 8 mg/dL (7-20); CALCIUM 8.6 mg/dL (8.4-10.2); CARBON DIOXIDE 30 mmol/L (22-30); CHLORIDE 96 mmol/L (98-107); GLUCOSE 107 mg/dL (75-110); POTASSIUM 3.4 mmol/L (3.6-5.0)
[2020-09-11] MEDS ORDERED: CHOLECALCIFEROL (D3) 1,000 UNIT (25 MCG) TABLET PO SCH (10:00)
[2020-09-11] MEDS ORDERED: ASCORBIC ACID 500 MG TABLET PO SCH (10:00)
[2020-09-11] MEDS: FUROSEMIDE INJ/PF 40 MG/4 ML SDV IV SCH (10:18)
[2020-09-11] MEDS: ENOXAPARIN SODIUM INJ 40 MG/0.4 ML DISP.SYRIN SUBCUT SCH (10:18)
[2020-09-11] MEDS: FAMOTIDINE 20 MG TABLET PO SCH (10:19)
--- NOTE | 2020-09-11 12:08 | PDOC CONSULTATION ---
Consultation Consult Date: 09/11/20 Provider Consulted: JAYASHREE SAHNNON Consult reason:: Hematology/Oncology consultation was requested for patient with pleural effusions on active chemotherapy for colon cancer. History of Present Illness Admission Date/PCP: 09/10/20 01:51 CATALINO MAYER MD History of Present Illness: JOEY PATEL is a 60 year old male who was diagnosed over a year ago with colon cancer. Initial an early stage cancer, he was found to have liver mets earlier this year. These were fully resected and he has had no evidence of cancer on scans, but maintenance chemotherapy has continued. He was due for his bi-weekly treatment this past . However, he presented to the office with worsening dyspnea on exertion, poor appetite, and weight gain for no reason. Clinically, he had new pleural effusion and muscle wasting. His tumor markers have been stable and repeat CT scans showed no evidence of recurrent cancer. However, he has bilateral pleural effusions and ascites. Not sure if cancer or underlying heart failure is causing his current problems. Today, after lasix, he is feeling much better, but has not yet been able to walk in the [place]. Cardiology consult and ECHO are still pending. Past Medical History Cardiac Medical History: Denies: Coronary Artery Disease, Myocardial Infarction, Hypertension Pulmonary Medical History: Denies: Asthma, Bronchitis, Chronic Obstructive Pulmonary Disease (COPD), Pneumonia Neurological Medical History: Denies: Seizures Musculoskeltal Medical History: Denies: Arthritis Psychiatric Medical History: Denies: Depression Hematology: Reports: Anemia Past Surgical History Past Surgical History: Reports: Herniorrhaphy Social History Lives with: Family Smoking Status: Never Smoker Electronic Cigarette use?: No Frequency of Alcohol Use: Rare Hx Recreational Drug Use: No Drugs: None - Advance Directive Resuscitation Status: Full Code Family History Parental Family History Reviewed: Yes - HTN Children Family History Reviewed: Yes Sibling(s) Family History Reviewed.: No - Brother with Marfans. Medication/Allergy Home Medications: Ascorbic Acid [Vitamin C 500 mg Tablet] 500 mg PO DAILY 06/22/20 Multivit with Minerals/Lutein [Vitrum Senior Tablet] 1 each PO DAILY 06/22/20 Vit B Complex 100 Combo No.2 [Balanced B-100] 100 mg PO DAILY 06/22/20 Cholecalciferol (Vitamin D3) [Vitamin D3 1000 Unit Tablet] 1,000 unit PO DAILY 09/10/20 Omeprazole 20 mg PO DAILY 09/10/20 Vitamin A Palmitate [Vitamin A] 10,000 unit PO DAILY 09/10/20 Allergies/Adverse Reactions: No Known Allergies Allergy (Verified 05/26/19 09:09) Review of Systems Constitutional: ABSENT: fever(s), headache(s) Eyes: ABSENT: visual disturbances Ears: ABSENT: hearing changes Nose, Mouth, and Throat: ABSENT: sore throat Cardiovascular: PRESENT: dyspnea on exertion. ABSENT: chest pain Respiratory: PRESENT: dyspnea Gastrointestinal: ABSENT: nausea Genitourinary: ABSENT: dysuria Musculoskeletal: ABSENT: back pain Integumentary: ABSENT: rash Neurological: PRESENT: weakness Hematologic/Lymphatic: ABSENT: easy bleeding Physical Exam Vital Signs: Temp Pulse Resp BP Pulse Ox 97.4 F 86 19 136/83 H 93 09/11/20 10:00 09/11/20 07:48 09/11/20 07:48 09/11/20 07:48 09/11/20 07:48 Intake & Output 09/10/20 09/11/20 09/12/20 06:59 06:59 06:59 Intake Total 0 460 Output Total 1450 2900 150 Balance -1450 -2440 -150 Weight 118.1 kg 130.2 kg General appearance: PRESENT: no acute distress, obese Head exam: PRESENT: normocephalic Eye exam: PRESENT: EOMI Mouth exam: PRESENT: moist, tongue midline Neck exam: ABSENT: lymphadenopathy, tenderness Respiratory exam: PRESENT: decreased breath sounds - left side 1/2 way up. Right side is now clear., unlabored Cardiovascular exam: PRESENT: RRR GI/Abdominal exam: PRESENT: soft. ABSENT: tenderness Extremities exam: PRESENT: +1 edema Neurological exam: PRESENT: alert, awake, oriented to person, oriented to place, oriented to time, oriented to situation Psychiatric exam: PRESENT: appropriate affect Skin exam: PRESENT: normal color Results Laboratory Results: 09/09/20 22:50 09/11/20 08:35 09/11/20 08:35 Sodium 132.7 L Potassium 3.4 L Chloride 96 L Carbon Dioxide 30 Anion Gap 7 BUN 8 Creatinine 0.56 Est GFR ( Amer) > 60 Glucose 107 Calcium 8.6 09/09/20 09/09/20 22:50 22:50 Troponin I < 0.012 NT-Pro-B Natriuret Pep 47 Status: Image reviewed by me Assessment & Plan - Diagnosis (1) 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 He has not been significantly immunocompromised due to his treatment. CT scans still with no obvious evidence of disease. However, pleural effusion and ascites is concerning for possible malignant cause. IF ANY FLUID IS OBTAINED, would want to sent specimen for cytology. (2) Pleural effusion Is this a current diagnosis for this admission?: Yes Plan: Await guidance from cardiology/primary medical team. Patient was discussed with Dr. Perkins. - Plan Summary Plan Summary: I had a long discussion with patient and today and explained that although I do not know the cause of his heart failure and fluid overload, I do not have any evidence to suggest that this is cancer thus far. But, this is still a possibility. I will continue to follow during this admission and will resume chemo on discharge.
[2020-09-11 12:19] LABS: INTERNATIONAL RATION (INR) 1.21; PROTHROMBIN TIME 15.5 SEC (11.4-15.4)
[2020-09-11 12:20] LABS: PARTIAL THROMBOPLASTIN TIME 36.1 SEC (23.5-35.8)
[2020-09-11 13:56] VITALS: BP 133/80
--- NOTE | 2020-09-11 14:11 | PDOC DISCHARGE SUMMARY ---
Impression - Admit/DC Date/PCP Admission Date/Primary Care Provider: 09/10/20 01:51 CATALINO MAYER MD Discharge Date: 09/11/20 - Discharge Diagnosis (1) Pleural effusion Is this a current diagnosis for this admission?: Yes (2) Dyspnea Is this a current diagnosis for this admission?: Yes (3) Ascites Is this a current diagnosis for this admission?: Yes (4) History of resection of liver Is this a current diagnosis for this admission?: Yes (5) History of colon cancer Is this a current diagnosis for this admission?: Yes (6) 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 Is this a current diagnosis for this admission?: Yes (7) Swelling of both lower extremities Is this a current diagnosis for this admission?: Yes - Additional Information Resuscitation Status: Full Code Discharge Diet: Cardiac Discharge Activity: Activity As Tolerated Referrals: JAYASHREE SHANNON MD [ACTIVE STAFF] - Follow up as needed NEERAJ ALLAN MD [ACTIVE STAFF] - MANUEL GIRALDO MD [ACTIVE STAFF] - Prescriptions: Spironolactone [Aldactone 25 mg Tablet] 25 mg PO Q12 #60 tablet Furosemide [Lasix 40 mg Tablet] 40 mg PO QAM #30 tablet Home Medications: Ascorbic Acid [Vitamin C 500 mg Tablet] 500 mg PO DAILY 06/22/20 Multivit with Minerals/Lutein [Vitrum Senior Tablet] 1 each PO DAILY 06/22/20 Vit B Complex 100 Combo No.2 [Balanced B-100] 100 mg PO DAILY 06/22/20 Cholecalciferol (Vitamin D3) [Vitamin D3 1000 Unit Tablet] 1,000 unit PO DAILY 09/10/20 Omeprazole 20 mg PO DAILY 09/10/20 Vitamin A Palmitate [Vitamin A] 10,000 unit PO DAILY 09/10/20 Furosemide [Lasix 40 mg Tablet] 40 mg PO QAM #30 tablet 09/11/20 Spironolactone [Aldactone 25 mg Tablet] 25 mg PO Q12 #60 tablet 09/11/20 History of Present Illiness History of Present Illness: According to admitting provider: JOEY PATEL is a 60 year old male with a history of colonic cancer status post colectomy in 2016 and subsequent metastasis to liver status post partial hepatectomy currently undergoing chemotherapy every 3 weeks now presents with a week and half duration of progressively worsening shortness of breath. The shortness of breath was initially with exertion but recently he feels short of breath at rest and he also has orthopnea. Patient also reports that he has bilateral leg swelling and feels heaviness on his abdomen. He denies any chest pain, palpitation, dizziness, vomiting, abdominal pain, diarrhea, dysuria, frequency or urgency of urination. He denies any recent sick contact history. Hospital Course Hospital Course: Patient presented to the hospital yesterday with gradual worsening of shortness of breath and bilateral lower extremity swelling. CT scan revealed evidence of previous hepatectomy as well as mild to moderate ascites, bilateral pleural effusions. Also noted was some abdominal wall edema. Patient was started on IV diuresis with Lasix with suspicion of congestive heart failure. Patient has diuresed extremely well. Unfortunately the CAT scan cannot really comment on whether there is true portal hypertension as patient does have history of metastatic colon cancer to the liver with history of partial colectomy as well as partial liver resection involving two thirds of his liver. Echocardiogram, though suboptimal, only shows about a grade 1 diastolic dysfunction and normal ejection fraction with mild to moderate concentric LVH. There is no clear evidence of pulmonary hypertension from left heart failure as the echo shows trace TR with only minimal regurgitation jet which suggest against pulmonary hypertension. As such, I do not think that patient actually has congestive heart failure as the cause of his problems. Moreover his BNP is 47. I suspect patient may have some element of portal hypertension secondary to losing 2/3 of his liver to surgical resection. This could account for his ascites and also potential hepatic hydrothorax. Notably he has mild thrombocytopenia, mild hypoa lbuminemia, and minimally elevated PT and PTT. Another possible etiology could be from his underlying malignancy which he is getting chemo for but seems to have been stable for now and CT ab/pelvis does not really show any masses or lesions since resections. Patient has responded very well to diuresis and he is doing well with adequate pulse oximetry on room air. He was also able to ambulate the hallway with a without any remarkable dyspnea which he says he could not do when he came in. He is net -4 L since admission yesterday. I think patient will do well on diuresis and may not need invasive procedures at this point so I I have discussed with patient and will hold off on pushing thoracentesis or paracentesis. I will discharge patient on Aldactone and Lasix. Discussed with patient and his that he will need to follow-up with oncology and GI and also cardiology. I have discussed with Dr. Eckert today and she is in agreement with the plan. Patient has been given instructions for low- sodium diet and to monitor his symptoms. Also instructed to have repeat blood work done in 2 weeks to monitor his electrolytes and renal function. Physical Exam Vital Signs: Temp Pulse Resp BP Pulse Ox 97.4 F 86 19 136/83 H 93 09/11/20 10:00 09/11/20 07:48 09/11/20 07:48 09/11/20 07:48 09/11/20 07:48 Intake & Output 09/10/20 09/11/20 09/12/20 06:59 06:59 06:59 Intake Total 0 460 Output Total 1450 2900 150 Balance -1450 -2440 -150 Weight 118.1 kg 130.2 kg General appearance: PRESENT: no acute distress, cooperative, obese Neck exam: ABSENT: JVD Respiratory exam: PRESENT: decreased breath sounds - [place], unlabored. ABSENT: crackles, tachypnea, wheezes Cardiovascular exam: PRESENT: RRR, +S1, +S2. ABSENT: tachycardia GI/Abdominal exam: PRESENT: soft. ABSENT: firm, guarding, rebound, rigid, tenderness Musculoskeletal exam: PRESENT: ambulatory Neurological exam: PRESENT: alert, awake, oriented to person, oriented to place, oriented to time, oriented to situation Results Laboratory Results: WBC 5.5 10^3/uL (4.0-10.5) 09/09/20 22:50 RBC 4.89 10^6/uL (4.35-5.55) 09/09/20 22:50 Hgb 15.0 g/dL (13.5-17.0) 09/09/20 22:50 Hct 42.3 % (37.9-51.0) 09/09/20 22:50 MCV 87 fl (80-97) 09/09/20 22:50 MCH 30.6 pg (27.0-33.4) 09/09/20 22:50 MCHC 35.3 g/dL (32.0-36.0) 09/09/20 22:50 RDW 16.2 % (11.5-14.0) H 09/09/20 22:50 Plt Count 108 10^3/uL (150-450) L 09/09/20 22:50 Lymph % (Auto) 17.1 % (13-45) 09/09/20 22:50 [place] % (Auto) 12.4 % (3-13) 09/09/20 22:50 Eos % (Auto) 5.5 % (0-6) 09/09/20 22:50 Baso % (Auto) 0.8 % (0-2) 09/09/20 22:50 Absolute Neuts (auto) 3.5 10^3/uL (1.7-8.2) 09/09/20 22:50 Absolute Lymphs (auto) 0.9 10^3/uL (0.5-4.7) 09/09/20 22:50 Absolute Monos (auto) 0.7 10^3/uL (0.1-1.4) 09/09/20 22:50 Absolute Eos (auto) 0.3 10^3/uL (0.0-0.6) 09/09/20 22:50 Absolute Basos (auto) 0.0 10^3/uL (0.0-0.2) 09/09/20 22:50 Seg Neutrophils % 64.2 % (42-78) 09/09/20 22:50 PT 15.5 SEC (11.4-15.4) H 09/11/20 11:35 INR 1.21 09/11/20 11:35 APTT 36.1 SEC (23.5-35.8) H 09/11/20 11:35 Sodium 132.7 mmol/L (137-145) L 09/11/20 08:35 Potassium 3.4 mmol/L (3.6-5.0) L 09/11/20 08:35 Chloride 96 mmol/L (98-107) L 09/11/20 08:35 Carbon Dioxide 30 mmol/L (22-30) 09/11/20 08:35 Anion Gap 7 (5-19) 09/11/20 08:35 BUN 8 mg/dL (7-20) 09/11/20 08:35 Creatinine 0.56 mg/dL (0.52-1.25) 09/11/20 08:35 Est GFR ( Amer) > 60 (>60) 09/11/20 08:35 Est GFR (MDRD) Non-Af > 60 (>60) 09/11/20 08:35 Glucose 107 mg/dL (75-110) 09/11/20 08:35 Calcium 8.6 mg/dL (8.4-10.2) 09/11/20 08:35 Total Bilirubin 2.0 mg/dL (0.2-1.3) H 09/09/20 22:50 Direct Bilirubin 0.3 mg/dL (0.0-0.4) 09/09/20 22:50 Neonat Total Bilirubin Not Reportable 09/09/20 22:50 Neonat Direct Bilirubin Not Reportable 09/09/20 22:50 Neonat Indirect Bili Not Reportable 09/09/20 22:50 AST 72 U/L (17-59) H 09/09/20 22:50 ALT 33 U/L (<50) 09/09/20 22:50 Alkaline Phosphatase 153 U/L (38-126) H 09/09/20 22:50 Troponin I < 0.012 ng/mL 09/09/20 22:50 NT-Pro-B Natriuret Pep 47 pg/mL (<125) 09/09/20 22:50 Total Protein 6.8 g/dL (6.3-8.2) 09/09/20 22:50 Albumin 3.2 g/dL (3.5-5.0) L 09/09/20 22:50 Triglycerides 70 mg/dL (<150) 09/10/20 05:17 Cholesterol 122.58 mg/dL (0-200) 09/10/20 05:17 LDL Cholesterol Direct 73 mg/dL (<100) 09/10/20 05:17 VLDL Cholesterol 14.0 mg/dL (10-31) 09/10/20 05:17 HDL Cholesterol 31 mg/dL (>40) L 09/10/20 05:17 Urine Color YELLOW 09/10/20 00:33 Urine Appearance CLEAR 09/10/20 00:33 Urine pH 6.0 (5.0-9.0) 09/10/20 00:33 Ur Specific [place] 1.024 09/10/20 00:33 Urine Protein NEGATIVE mg/dL (NEGATIVE) 09/10/20 00:33 Urine Glucose (UA) NEGATIVE mg/dL (NEGATIVE) 09/10/20 00:33 Urine Ketones TRACE mg/dL (NEGATIVE) H 09/10/20 00:33 Urine Blood NEGATIVE (NEGATIVE) 09/10/20 00:33 Urine Nitrite NEGATIVE (NEGATIVE) 09/10/20 00:33 Urine Bilirubin NEGATIVE (NEGATIVE) 09/10/20 00:33 Urine Urobilinogen 2.0 mg/dL (<2.0) H 09/10/20 00:33 Ur Leukocyte Esterase NEGATIVE (NEGATIVE) 09/10/20 00:33 Urine WBC (Auto) 1 /HPF 09/10/20 00:33 Urine RBC (Auto) 0 /HPF 09/10/20 00:33 Squamous Epi Cells Auto <1 /HPF 09/10/20 00:33 Urine Mucus (Auto) OCC /LPF 09/10/20 00:33 Urine Ascorbic Acid NEGATIVE (NEGATIVE) 09/10/20 00:33 Influenza A (RT-PCR) NEGATIVE (NEGATIVE) 09/10/20 00:33 Influenza B (RT-PCR) NEGATIVE (NEGATIVE) 09/10/20 00:33 RSV (RT-PCR) NEGATIVE (NEGATIVE) 09/10/20 00:33 SARS-CoV-2 Rap RNA(RT-PCR) NEGATIVE (NEGATIVE) 09/10/20 00:33 09/09/20 09/09/20 22:50 22:50 Troponin I < 0.012 NT-Pro-B Natriuret Pep 47 Plan Time Spent: Greater than 30 Minutes Stroke Is this a Stroke Patient?: No Acute Heart Failure Is this a Heart Failure Patient?: No
[2020-09-11] MEDS ORDERED: POTASSIUM CHLORIDE 10 MEQ TABLET.ER PO ONE (15:00)
== END 2020-09-11 15:00 | disposition home or self-care (01) ==
LOC: ER 17:04 → INTOOBSV 09-10 01:51 → EH 09-10 01:51 → 4S 09-10 02:30
PROVIDERS: ADMIT Student in an Organized Health Care Education/Training Program; ATTEND Internal Medicine
DX: J90 Pleural effusion, not elsewhere classified (principal); R06.09 Other forms of dyspnea; R18.8 Other ascites; M79.89 Other specified soft tissue disorders; E88.09 Other disorders of plasma-protein metabolism, not elsewhere classified; D69.6 Thrombocytopenia, unspecified; E66.9 Obesity, unspecified; R06.01 Orthopnea; I51.89 Other ill-defined heart diseases; Z20.828 Contact with and (suspected) exposure to other viral communicable diseases; Z85.038 Personal history of other malignant neoplasm of large intestine; Z85.05 Personal history of malignant neoplasm of liver; Z90.89 Acquired absence of other organs; Z79.899 Other long term (current) drug therapy; Z90.49 Acquired absence of other specified parts of digestive tract
CPT/HCPCS: 93005; 99285; 96374; 36415; 87086; 85025; 85610; 85730; 0241U ×4; 87088; 80048 ×2; 80053; 81001; 84484; 87186; 80061; 83880; 93306; 93010; G0378 ×2; J1940 ×2; J1650 ×2; J1642; C9803

== ENCOUNTER → 2020-09-09 | Outpatient (CLI) | payer BC ==
--- NOTE | 2020-09-09 16:17 | RADIOLOGY REPORT (SQ) ---
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 TECHNIQUE: CT scan of the chest performed using helical scanning technique with dynamic intravenous contrast injection. Images reviewed with lung, soft tissue and bone windows. Reconstructed coronal and sagittal MPR and MIP images reviewed. All images stored on PACS. All CT scanners at this facility use dose modulation, iterative reconstruction, and/or weight based d osing when appropriate to reduce radiation dose to as low as reasonably achievable (ALARA). [facility]: Dose Right [facility]: CareDose [facility]: Dose Right [facility]: Teradose 4D [facility]: [employer] CONTRAST TYPE AND DOSE: See separate report same date. RENAL FUNCTION: See separate report same date. RADIATION DOSE: CT Rad equipment meets quality standard of care and radiation dose reduction techniq ues were employed. CTDIvol: 24.7 - 30.5 mGy. DLP: 4440 mGy-cm. . LIMITATIONS: None. FINDINGS: LUNGS AND PLEURA: Bilateral pleural effusions, left greater than right with volume on the left estimated 1.5 L. 32 HU. There is associated dependent airspace disease. HILAR AND MEDIASTINAL STRUCTURES: No identified masses or abnormal nodes. HEART AND VASCULAR STRUCTURES: No aneurysm or dissection. No central pulmonary emboli. No pericardi al effusion. HARDWARE: None in the chest. UPPER ABDOMEN: See separate report of the CT of the abdomen. THYROID AND OTHER SOFT TISSUES: No masses. No adenopathy. BONES: No significant finding. OTHER: Right-sided port tip SVC. IMPRESSION: Moderate left and slightly smaller right pleural effusion. TECHNICAL DOCUMENTATION: JOB ID: [id number] Quality ID # [id number]: Final reports with documentation of one or more dose reduction techniques (e.g., Au tomated exposure control, adjustment of the mA and/or kV according to patient size, use of iterative reconstruction technique) 2010 [employer]- All Rights Reserved Reading location - IP/workstation name: [email or web address]
--- NOTE | 2020-09-09 16:36 | RADIOLOGY REPORT (SQ) ---
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 TECHNIQUE: CT scan of the abdomen and pelvis performed using helical scanning technique with dynamic intravenous contrast injection. No oral contrast. Images reviewed with lung, soft tissue, and bone windows. Reconstructed coronal and sagittal MPR images reviewed. Delayed images for evaluation of the urinary system also acquired. All images stored on PACS. All CT scanners at this facility use dose modulation, iterative reconstruction, and/or weight based d osing when appropriate to reduce radiation dose to as low as reasonably achievable (ALARA). [facility]: Dose Right [facility]: CareDose [facility]: Dose Right [facility]: Teradose 4D [facility]: [employer] CONTRAST TYPE AND DOSE: contrast/concentration: Isovue 350.00 mmol/ml; Total Contrast Delivered: 100 .0 ml; Total Saline Delivered: 40.0 ml RENAL FUNCTION: GFR > 60. RADIATION DOSE: . LIMITATIONS: None. FINDINGS: LOWER CHEST: See separate report of the CT of the chest. LIVER: Partial hepatectomy right lobe. SPLEEN: Normal size. No focal lesions. PANCREAS: No masses. No significant calcifications. No adjacent inflammation or peripancreatic fluid collections. Pancreatic duct not dilated. GALLBLADDER: Surgically absent. ADRENAL GLANDS: No significant masses or asymmetry. RIGHT KIDNEY AND URETER: No solid masses. No significant calcifications. No hydronephrosis or hyd roureter. LEFT KIDNEY AND URETER: No solid masses. No significant calcifications. No hydronephrosis or hydr oureter. AORTA AND VESSELS: No aneurysm. No dissection. Renal arteries, SMA, celiac without stenosis. RETROPERITONEUM: No retroperitoneal adenopathy, hemorrhage or masses. BOWEL AND PERITONEAL CAVITY: Mild -moderate ascites. Anastomosis sigmoid colon. No dilated loops. APPENDIX: Not visualized. PELVIS: No mass. No free fluid. Normal bladder. ABDOMINAL WALL: Body wall edema. BONES: No significant or acute findings. OTHER: No other significant finding. IMPRESSION: 1. Mild -moderate ascites status post partial hepatectomy. 2. Body wall edema. TECHNICAL DOCUMENTATION: JOB ID: [id number] Quality ID # [id number]: Final reports with documentation of one or more dose reduction techniques (e.g., Au tomated exposure control, adjustment of the mA and/or kV according to patient size, use of iterative reconstruction technique) 2010 [employer]- All Rights Reserved Reading location - IP/workstation name: [email or web address]
== END ==
LOC: RAD 15:00
PROVIDERS: ATTEND Internal Medicine Hematology & Oncology
DX: C19 Malignant neoplasm of rectosigmoid junction (principal); R18.8 Other ascites; J90 Pleural effusion, not elsewhere classified
CPT/HCPCS: 71260; 74177

== ENCOUNTER 2020-09-29 11:02 | Day surgery (SDC) | payer BC ==
[2020-09-29 12:20] LABS: HEMATOCRIT 42.8 % (37.9-51.0); HEMOGLOBIN 15.1 g/dL (13.5-17.0); MEAN CORPUSCULAR HEMOGLOBIN 30.2 pg (27.0-33.4); MEAN CORPUSCULAR HGB CONC 35.2 g/dL (32.0-36.0); MEAN CORPUSCULAR VOLUME 86 fl (80-97); PLATELET COUNT 118 10^3/uL (150-450); RED BLOOD COUNT 4.99 10^6/uL (4.35-5.55); RED CELL DISTRIBUTION WIDTH 16.2 % (11.5-14.0); WHITE BLOOD COUNT 5.9 10^3/uL (4.0-10.5)
[2020-09-29 12:32] LABS: INTERNATIONAL RATION (INR) 1.14; PROTHROMBIN TIME 14.8 SEC (11.4-15.4)
[2020-09-29 12:33] LABS: PARTIAL THROMBOPLASTIN TIME 33.6 SEC (23.5-35.8)
[2020-09-29 12:48] LABS: BLOOD UREA NITROGEN 10 mg/dL (7-20); CREATINE KINASE 71 U/L (55-170)
[2020-09-29 14:02] LABS: FLUID SOURCE LUNG; FLUID TYPE PLEURAL
[2020-09-29 14:03] LABS: FLUID APPEARANCE TURBID; FLUID VISCOSITY LIQUID
[2020-09-29 14:14] LABS: FLUID COLOR ORANGE
--- NOTE | 2020-09-29 14:42 | RADIOLOGY REPORT (SQ) ---
EXAM DESCRIPTION: CHEST SINGLE VIEW IMAGES COMPLETED DATE/TIME: 09/29/2020 1:30 pm REASON FOR STUDY: S/P LT THORACENTESIS COMPARISON: 06/17/2020 EXAM PARAMETERS: NUMBER OF VIEWS: One view. TECHNIQUE: Single frontal radiographic view of the chest acquired. RADIATION DOSE: NA LIMITATIONS: Low lung volumes. FINDINGS: LUNGS AND PLEURA: No pneumothorax following left-sided thoracentesis. Small pleural effus ions remain. MEDIASTINUM AND HILAR STRUCTURES: No masses. Contour normal. HEART AND VASCULAR STRUCTURES: Heart normal in size. Normal vasculature. BONES: No acute findings. HARDWARE: [id number] is in place. OTHER: No other significant finding. IMPRESSION: No pneumothorax following left-sided thoracentesis. TECHNICAL DOCUMENTATION: JOB ID: [id number] 2010 [employer]- All Rights Reserved Reading location - IP/workstation name: [email or web address]
--- NOTE | 2020-09-29 15:33 | RADIOLOGY REPORT (SQ) ---
EXAM DESCRIPTION: CHEST SINGLE VIEW IMAGES COMPLETED DATE/TIME: 09/29/2020 3:23 pm REASON FOR STUDY: 2 HOURS S/P LT THORACENTESIS COMPARISON: 09/29/2020 EXAM PARAMETERS: NUMBER OF VIEWS: One view. TECHNIQUE: Single frontal radiographic view of the chest acquired. RADIATION DOSE: NA LIMITATIONS: None. FINDINGS: LUNGS AND PLEURA: No pneumothorax following left-sided thoracentesis. Trace bilateral ple ural effusions persist. No focal consolidation. MEDIASTINUM AND HILAR STRUCTURES: No masses. Contour normal. HEART AND VASCULAR STRUCTURES: Heart normal in size. Normal vasculature. BONES: No acute findings. HARDWARE: Right-sided Port-A-Cath, stable. OTHER: No other significant finding. IMPRESSION: No pneumothorax following left-sided thoracentesis. TECHNICAL DOCUMENTATION: JOB ID: [id number] 2010 [employer]- All Rights Reserved Reading location - IP/workstation name: [email or web address]
[2020-09-29 15:59] VITALS: BP 116/77
--- NOTE | 2020-09-29 16:28 | RADIOLOGY REPORT (SQ) ---
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 PROCEDURE: Procedure, risks, benefit, and alternative explained to patient who then gave written con sent. The posterior left chest wall was marked using ultrasound guidance. A time-out was called for correct marking verification. Chest prepped and draped using sterile technique. Local anesthesia ac hieved using 10 ml of 1% lidocaine injection. A 6fr Safe-T- Centesis set was introduced into the lef t pleural space. Fluid was aspirated. The catheter was removed and the entry site was covered with sterile bandage. No immediate complications noted. Images acquired during the procedure were stored on PACS. FINDINGS: ENTRY SITE: posterior left chest. FLUID VOLUME: 1000 mL FLUID ANALYSIS: Cloudy pink colored fluid OTHER: Fluid sent to the lab for testing. IMPRESSION: SUCCESSFUL THORACENTESIS USING ULTRASOUND GUIDANCE. COMMENT: Patient medication list reviewed: Yes- Quality ID# [id number]:Eligible professional attests to doc umenting in the medical record they obtained, updated, or reviewed the patient's current medications. TECHNICAL DOCUMENTATION: JOB ID: [id number] 2010 [employer]- All Rights Reserved Reading location - IP/workstation name: [email or web address]
== END 2020-09-29 16:55 | disposition home or self-care (01) ==
LOC: RAD 11:02
PROVIDERS: ATTEND Internal Medicine Hematology & Oncology
DX: C19 Malignant neoplasm of rectosigmoid junction (principal); J91.0 Malignant pleural effusion; D50.0 Iron deficiency anemia secondary to blood loss (chronic)
CPT/HCPCS: 32555; 36415; 71045; 82550; 84520; 85027; 85610; 85730; 89050

== ENCOUNTER → 2020-10-01 | Outpatient (CLI) | payer BC ==
--- NOTE | 2020-10-01 16:35 | RADIOLOGY REPORT (SQ) ---
EXAM DESCRIPTION: CHEST 2 VIEWS IMAGES COMPLETED DATE/TIME: 10/01/2020 4:00 pm REASON FOR STUDY: (R05)COUGH;(R06.02)SHORTNESS OF BREATH COMPARISON: 09/29/2020 EXAM PARAMETERS: NUMBER OF VIEWS: two views TECHNIQUE: Digital Frontal and Lateral radiographic views of the chest acquired. RADIATION DOSE: NA LIMITATIONS: none FINDINGS: LUNGS AND PLEURA: Mild increase in volume of previously demonstrated bilateral pleural eff usions. No focal consolidation. No pneumothorax. MEDIASTINUM AND HILAR STRUCTURES: No masses or contour abnormalities. HEART AND VASCULAR STRUCTURES: Heart normal size. No evidence for failure. BONES: No acute findings. HARDWARE: Port-A-Cath terminates in the region of the superior vena cava. OTHER: No other significant finding. IMPRESSION: Small bilateral pleural effusions appear minimally increased in volume in the study inte rval. Otherwise stable radiographic appearance of the chest. TECHNICAL DOCUMENTATION: JOB ID: [id number] 2010 [employer]- All Rights Reserved Reading location - IP/workstation name: [email or web address]
== END ==
LOC: RAD 15:44
PROVIDERS: ATTEND Internal Medicine Hematology & Oncology
DX: J90 Pleural effusion, not elsewhere classified (principal); R05 Cough; R06.02 Shortness of breath
CPT/HCPCS: 71046